=== PATIENT | female | born 1985 | race Caucasian/White ===

== ENCOUNTER → 2017-01-02 | Outpatient (CLI) | payer OTHER ==
[2017-01-02 10:32] LABS: ABSOLUTE EOSINOPHILS # (AUTO) 0.1 10^3/uL (0.0-0.6); ABSOLUTE LYMPHOCYTES (AUTO) 1.2 10^3/uL (0.5-4.7); ABSOLUTE MONOCYTES (AUTO) 0.2 10^3/uL (0.1-1.4); ABSOLUTE NEUT (AUTO) 4.3 10^3/uL (1.7-8.2); BASOPHILS % (AUTO) 0.1 % (0-2); HEMATOCRIT 42.3 % (36.0-47.0); HEMOGLOBIN 14.3 g/dL (12.0-15.5); HGB HCT DIFFERENCE 0.6; LYMPHOCYTES % (AUTO) 20.9 % (13-45); MEAN CORPUSCULAR HEMOGLOBIN 31.9 pg (27.0-33.4); MEAN CORPUSCULAR HGB CONC 33.8 g/dL (32.0-36.0); MEAN CORPUSCULAR VOLUME 94 fl (80-97); MONOCYTES % (AUTO) 3.6 % (3-13); RED BLOOD COUNT 4.49 10^6/uL (3.72-5.28); RED CELL DISTRIBUTION WIDTH 13.3 % (11.5-14.0); SEGMENTED NEUTROPHILS % (AUTO) 74.4 % (42-78); WHITE BLOOD COUNT 5.7 10^3/uL (4.0-10.5)
[2017-01-02 11:42] LABS: ADD HIVPANEL? NO; HIV (1 AND 2) ANTIBODY NEGATIVE (NEGATIVE)
[2017-01-03 06:39] LABS: HEPATITIS C VIRUS AB <0.1 s/co ratio (0.0-0.9)
[2017-01-03 16:39] LABS: HGB A 97.6 % (94.0-98.0); HGB A2 2.4 % (0.7-3.1); HGB SOLUBILITY RESULT Negative (Negative)
== END ==
LOC: OD 09:36
PROVIDERS: ATTEND Advanced Practice Midwife
DX: Z13.29 Encounter for screening for other suspected endocrine disorder (principal); Z13.0 Encounter for screening for diseases of the blood and blood-forming organs and certain disorders involving the immune mechanism; Z11.3 Encounter for screening for infections with a predominantly sexual mode of transmission
CPT/HCPCS: 36415; 83020; 84163; 84443; 84702; 85025; 86336; 86592; 86701; 86762; 86803; 86804; 86850; 86900; 86901; 87340

== ENCOUNTER → 2017-01-30 | Outpatient (CLI) | payer OTHER | LOC: OD 09:14 | PROVIDERS: ATTEND Obstetrics & Gynecology | DX: Z36 Encounter for antenatal screening of mother (principal) | CPT/HCPCS: 36415; 82105 ==

== ENCOUNTER 2017-07-09 09:52 | Outpatient (CLI) | payer OTHER ==
[2017-07-09 10:35] LABS: APPEARANCE,URINE CLEAR; BILIRUBIN,URINE NEGATIVE (NEGATIVE); COLOR,URINE STRAW; GLUCOSE, URINE NEGATIVE (NEGATIVE); KETONES,URINE NEGATIVE (NEGATIVE); LEUKOCYTE ESTERASE,URINE TRACE (NEGATIVE); NITRITE,URINE NEGATIVE (NEGATIVE); PROTEIN,URINE NEGATIVE (NEGATIVE); URINE SPECIFIC GRAVITY 1.003; UROBILINOGEN,URINE NEGATIVE mg/dL (<2.0)
--- NOTE | 2017-07-09 10:38 | Non Stress Test Report ---
Non Stress Test Datetime Report Generated by CPN: 07/09/2017 10:38 DEMOGRAPHIC Test Number: 1 EGA NST: 38.6 INDICATION Indication for Study: Ordered by Provider Indication for Study (NST) Other: PIH work up MONITORING Monitor Explained: Monitor Explained; Test Explained; Patient Verbalized Understanding Time on Monitor: 07/09/2017 10:13 Time off Monitor: 07/09/2017 10:37 NST Duration: 24 NST INTERVENTIONS NST Interventions: None Physician Notified NST: J. Stein, CNM BABY A: [id number] BABY A Movement : Present Contraction Frequency : irreg FHR Baseline : 135 Accelerations : 15X15 Decelerations : None Variability : Moderate 6-25bpm NST Review: Meets Criteria for Reactive NST NST Review and Verified By : Micheal Bellavancmarvin RNC NST Results: Reactive NST REPORT Report Trigger: Send Report
[2017-07-09 10:49] LABS: URINE AMPHETAMINES SCREEN NEGATIVE; URINE BARBITURATES SCREEN NEGATIVE; URINE BENZODIAZEPINES SCREEN NEGATIVE; URINE COCAINE SCREEN NEGATIVE; URINE MARIJUANA (THC) SCREEN NEGATIVE; URINE PHENCYCLIDINE SCREEN NEGATIVE
[2017-07-09 10:51] LABS: UR PRO/CREAT RATIO RESULT 0.5 mg/mg (0.0-0.2); URINE CREATININE 29.1 mg/dL (16-327); URINE PROTEIN 13.8 mg/dL (<12)
[2017-07-09 11:04] LABS: ABSOLUTE EOSINOPHILS # (AUTO) 0.1 10^3/uL (0.0-0.6); ABSOLUTE LYMPHOCYTES (AUTO) 1.9 10^3/uL (0.5-4.7); ABSOLUTE MONOCYTES (AUTO) 0.4 10^3/uL (0.1-1.4); ABSOLUTE NEUT (AUTO) 5.8 10^3/uL (1.7-8.2); BASOPHILS % (AUTO) 0.4 % (0-2); EOSINOPHILS % (AUTO) 0.7 % (0-6); HEMATOCRIT 35.8 % (36.0-47.0); HEMOGLOBIN 11.7 g/dL (12.0-15.5); MEAN CORPUSCULAR HEMOGLOBIN 28.8 pg (27.0-33.4); MEAN CORPUSCULAR HGB CONC 32.6 g/dL (32.0-36.0); MEAN CORPUSCULAR VOLUME 88 fl (80-97); MONOCYTES % (AUTO) 4.7 % (3-13); PLATELET COUNT 187 10^3/uL (150-450); RED BLOOD COUNT 4.06 10^6/uL (3.72-5.28); RED CELL DISTRIBUTION WIDTH 14.9 % (11.5-14.0); SEGMENTED NEUTROPHILS % (AUTO) 71.2 % (42-78); TOTAL CELLS COUNTED % (AUTO) 100 %; WHITE BLOOD COUNT 8.1 10^3/uL (4.0-10.5)
[2017-07-09 11:05] LABS: ALANINE AMINOTRANSFERASE 24 U/L (9-52); ALBUMIN 3.1 g/dL (3.5-5.0); ALKALINE PHOSPHATASE 216 U/L (38-126); ANION GAP 12 (5-19); ASPARTATE AMINO TRANSFERASE 24 U/L (14-36); BILIRUBIN,DIRECT 0.2 mg/dL (0.0-0.4); BILIRUBIN,TOTAL 0.3 mg/dL (0.2-1.3); BLOOD UREA NITROGEN 14 mg/dL (7-20); CARBON DIOXIDE 19 mmol/L (22-30); CHLORIDE 107 mmol/L (98-107); GLUCOSE 74 mg/dL (75-110); LDH 453 U/L (313-618); POTASSIUM 4.3 mmol/L (3.6-5.0); SODIUM 137.8 mmol/L (137-145); TOTAL PROTEIN 6.2 g/dL (6.3-8.2); URIC ACID 7.6 mg/dL (2.5-6.2)
[2017-07-09 11:19] LABS: URINE METHADONE SCREEN NEGATIVE
== END 2017-07-09 11:28 | disposition home or self-care (01) ==
LOC: LC 09:52
PROVIDERS: ATTEND Obstetrics & Gynecology Gynecology
PROC: 4A1HXCZ Monitoring of Products of Conception, Cardiac Rate, External Approach (ICD-10-PCS; principal; 2017-07-09)
DX: O13.3 Gestational [pregnancy-induced] hypertension without significant proteinuria, third trimester (principal); Z3A.38 38 weeks gestation of pregnancy
CPT/HCPCS: 36415; 59025; 80053; 80307; 81001; 82570; 83615; 84156; 84550; 85025

== ENCOUNTER 2017-07-11 08:48 | Inpatient (IN) | payer OTHER ==
[2017-07-11] MEDS ORDERED: RINGERS SOLUTION,LACTATED 1,000 ML IV PRN (10:39)
[2017-07-11] MEDS ORDERED: ACETAMINOPHEN 325 MG TABLET PO PRN (10:39)
[2017-07-11] MEDS ORDERED: OXYTOCIN/NORMAL SALINE 20 UNIT/1,000 ML RTUINJ IV PRN ×2 (10:46→17:41)
[2017-07-11 11:12] LABS: URINE AMPHETAMINES SCREEN NEGATIVE; URINE BARBITURATES SCREEN NEGATIVE; URINE BENZODIAZEPINES SCREEN NEGATIVE; URINE COCAINE SCREEN NEGATIVE; URINE MARIJUANA (THC) SCREEN NEGATIVE; URINE METHADONE SCREEN NEGATIVE; URINE PHENCYCLIDINE SCREEN NEGATIVE
[2017-07-11 11:24] LABS: APPEARANCE,URINE CLEAR; BILIRUBIN,URINE NEGATIVE (NEGATIVE); COLOR,URINE STRAW; GLUCOSE, URINE NEGATIVE (NEGATIVE); KETONES,URINE NEGATIVE (NEGATIVE); LEUKOCYTE ESTERASE,URINE TRACE (NEGATIVE); NITRITE,URINE NEGATIVE (NEGATIVE); PROTEIN,URINE NEGATIVE (NEGATIVE); URINE SPECIFIC GRAVITY 1.004; UROBILINOGEN,URINE NEGATIVE mg/dL (<2.0)
[2017-07-11 11:52] LABS: ABSOLUTE LYMPHOCYTES (AUTO) 1.7 10^3/uL (0.5-4.7); ABSOLUTE MONOCYTES (AUTO) 0.3 10^3/uL (0.1-1.4); ABSOLUTE NEUT (AUTO) 5.5 10^3/uL (1.7-8.2); BASOPHILS % (AUTO) 0.3 % (0-2); EOSINOPHILS % (AUTO) 0.3 % (0-6); HEMATOCRIT 36.9 % (36.0-47.0); HEMOGLOBIN 12.1 g/dL (12.0-15.5); LYMPHOCYTES % (AUTO) 22.6 % (13-45); MEAN CORPUSCULAR HEMOGLOBIN 28.9 pg (27.0-33.4); MEAN CORPUSCULAR HGB CONC 32.7 g/dL (32.0-36.0); MEAN CORPUSCULAR VOLUME 89 fl (80-97); MONOCYTES % (AUTO) 4.2 % (3-13); PLATELET COUNT 174 10^3/uL (150-450); RED BLOOD COUNT 4.16 10^6/uL (3.72-5.28); RED CELL DISTRIBUTION WIDTH 14.7 % (11.5-14.0); SEGMENTED NEUTROPHILS % (AUTO) 72.6 % (42-78); TOTAL CELLS COUNTED % (AUTO) 100 %; WHITE BLOOD COUNT 7.6 10^3/uL (4.0-10.5)
[2017-07-11] MEDS ORDERED: OXYTOCIN/NORMAL SALINE 20 UNIT/1,000 ML RTUINJ ONE ×2 (11:53→12:32)
[2017-07-11 12:19] LABS: ALANINE AMINOTRANSFERASE 40 U/L (9-52); ALBUMIN 3.1 g/dL (3.5-5.0); ALKALINE PHOSPHATASE 211 U/L (38-126); ANION GAP 9 (5-19); ASPARTATE AMINO TRANSFERASE 49 U/L (14-36); BILIRUBIN,DIRECT 0.2 mg/dL (0.0-0.4); BILIRUBIN,TOTAL 0.3 mg/dL (0.2-1.3); BLOOD UREA NITROGEN 13 mg/dL (7-20); CALCIUM 9.3 mg/dL (8.4-10.2); CARBON DIOXIDE 23 mmol/L (22-30); CHLORIDE 106 mmol/L (98-107); GLUCOSE 98 mg/dL (75-110); LDH 520 U/L (313-618); SODIUM 138.2 mmol/L (137-145); TOTAL PROTEIN 5.7 g/dL (6.3-8.2)
[2017-07-11] MEDS ORDERED: MISOPROSTOL 0.2 MG TABLET ONE (12:32)
[2017-07-11] MEDS ORDERED: LIDOCAINE 1% INJ-PF (10 MG/ML) 30 ML SDV ONE (12:33)
--- NOTE | 2017-07-11 13:10 | L&D Progress Notes ---
PROGRESS NOTES Datetime Report Generated by CPN: 07/11/2017 13:09 PROGRESS NOTE Impression: Normal Progression of Labor Procedures: Sterile Vag Exam Plan: Continue Present Management; Anticipate Vaginal Delivery Informed Consent Obtained: Vaginal Delivery; Risks, Benefits and Alternatives Discussed Vital Signs : Reviewed Comment: pt not feeling ctx. Currently on pitocin 4. Cvx 3-4/50/-2. Plan for continued pitocin and IOL for GHTN. No need for Cooks catheter at this time. Pt reports that she desires epidural for pain control but doing well now. Will re-eval in approx 2 hours. VAGINAL EXAM Dilatation: 4 Effacement: 50 Station: -2 FETUS A FHR - Baseline: 130 Monitoring: External US Variability: Moderate 6-25bpm Accelerations: 15X15 Decelerations: None FHR Category: Category I SIGNATURE SIGNATURE: [id number];[id number] SIGNATURE: [id number] Signature: with User ID: [email or web address]
--- NOTE | 2017-07-11 15:28 | L&D Progress Notes ---
PROGRESS NOTES Datetime Report Generated by CPN: 07/11/2017 15:27 PROGRESS NOTE Impression: Normal Progression of Labor Procedures: Artificial ROM; Sterile Vag Exam Plan: Continue Present Management; Induction; Anticipate Vaginal Delivery Informed Consent Obtained: Vaginal Delivery; Risks, Benefits and Alternatives Discussed Vital Signs : Reviewed; Within Normal Limits Comment: cvx exam changed. Pt starting to feel ctx. Continue pitocin. Antcipate . EFW 7-8#. Pelvis adequate for continued BALTAZAR. AROM with clear fluid. Epidural upon patient request. VAGINAL EXAM Dilatation: 5 Effacement: 80 Station: -1 Contractions: q 1-2 MEMBRANES Membranes: Ruptured Amniotic Fluid Color: Clear FETUS A FHR - Baseline: 125 Monitoring: External US Variability: Moderate 6-25bpm Accelerations: 15X15 Decelerations: None FHR Category: Category I FETUS C SIGNATURE: [id number];[id number] Signature: with User ID: [email or web address]
--- NOTE | 2017-07-11 17:30 | Warning Signs in Babies ---
VOD Warning Signs Datetime Report Generated by [facility]: 07/11/2017 17:29 VOD#608 -Warning Signs in Babies: Needs to be viewed. (07/09/2017 10:08:Fly Coon RN)
[2017-07-11] MEDS ORDERED: BENZOCAINE/MENTHOL AEROSOL SPRAY 56 ML TOP PRN (17:41)
[2017-07-11] MEDS ORDERED: MAGNESIUM HYDROXIDE SUSP 30 ML UDCUP PO PRN (17:41)
[2017-07-11] MEDS ORDERED: NA PHOS,M-B/NA PHOS,DI-BA (ADULT) 133 ML ENEMA PR PRN (17:41)
[2017-07-11] MEDS ORDERED: ZOLPIDEM TARTRATE 5 MG TABLET PO PRN (17:41)
[2017-07-11] MEDS ORDERED: DIPH/PERTUSS(ACELL)/TETANUS VAC/PF 0.5 ML SYR (>=10YO) IM PRN (17:41)
[2017-07-11] MEDS ORDERED: ACETAMINOPHEN 650 MG SUPP.RECT PR PRN (17:41)
[2017-07-11] MEDS ORDERED: GLYCERIN/WITCH HAZEL LEAF 1 EACH MED..PAD TP PRN (17:41)
[2017-07-11] MEDS ORDERED: PSEUDOEPHEDRINE HCL 30 MG TABLET PO PRN (17:41)
[2017-07-11] MEDS ORDERED: DIPHENHYDRAMINE HCL 25 MG CAPSULE PO PRN (17:41)
[2017-07-11] MEDS ORDERED: DIBUCAINE 1% OINTMENT 28 GM TP PRN (17:41)
[2017-07-11] MEDS ORDERED: PROMETHAZINE HCL 25 MG SUPP.RECT PR PRN (17:41)
[2017-07-11] MEDS ORDERED: PROMETHAZINE HCL 25 MG TABLET PO PRN (17:41)
[2017-07-11] MEDS ORDERED: PROMETHAZINE HCL INJ 25 MG/1 ML VIAL IV PRN (17:41)
[2017-07-11] MEDS ORDERED: MEASLES,MUMPS&RUBELLA VACC/PF 0.5 ML VIAL SUBCUT PRN (17:41)
[2017-07-11] MEDS ORDERED: ACETAMINOPHEN WITH CODEINE #3 TABLET PO PRN (17:41)
--- NOTE | 2017-07-11 18:45 | Delivery Summary ---
Del Sum A-C Datetime Report Generated by CPN: 07/11/2017 18:45 DELIVERY PERSONNEL DELIVERY PERSONNEL: [id number] Delivery Doctor:: Carolyn Schulz CNM Labor and Delivery Nurse:: Fly Coon RN Nursery Nurse:: Donna White RN Embedded Software Architect/WELL TESTING OPERATOR: Steve Monroe, STRAW BOSS MATERNAL INFORMATION Delivery Anesthesia: Epidural Medications After Delivery: Pitocin Drip 20 Units/1000ml NSS Estimated Blood Loss (ml): 150 Maternal Complications: None Provider Comments: pt. obtained epidural without relief of pain and urge to push was checked and found to be c/c/+2 began pushing and went on to deliver a viable baby boy with vigorous respiratory effort and cry at . Baby placed on maternal abdomen and cord allowed to stop pulsating then clamped x2 and cut. Placenta delivered spontaneously intact (3vc noted, cord blood collected). Vaginal and perineal inspection revealed lacerations as stated and repaired. Mother and baby stable and skin to skin at this time. LABOR SUMMARY EDC: 07/17/2017 00:00 No. Babies in Womb: 1 Attempted: No Labor Anesthesia: Epidural LABOR INFORMATION Reason for Induction: Gestational Hypertension Onset of Labor: 07/11/2017 13:10 Complete Dilatation: 07/11/2017 16:55 Oxytocin: Induction Group B Beta Strep: Negative Antibiotics # of Doses: n/a Antibiotics Time of Last Dose: n/a Name of Antibiotic Given: n/a Steroids Given: None Reason Steroids Not Administered: Not Applicable Other Reason Not Administered: n/a MEMBRANES Membranes Rupture Method: Artificial Rupture of Membranes: 07/10/2017 13:47 Length of Rupture (hr): 27.53 Amniotic Fluid Color: Clear Amniotic Fluid Amount: Small Amniotic Fluid Odor: Normal STAGES OF LABOR Stage 1 hr: 3 Stage 1 min: 45 Stage 2 hr: 0 Stage 2 min: 24 Stage 3 hr: 0 Stage 3 min: 5 Total Time in Labor hr: 4 Total Time in Labor min: 14 VAGINAL DELIVERY Episiotomy: None Laceration #1: Perineal; Vaginal Laceration Extension #1: First Degree Other Laceration: bilateral labial abrasions, MLL Laceration Repair: Yes Laceration Repair Note: pt. with MLL that appears to be old scar tissue repaired with 3-[address]- hemostatic and well approximated. Bilateral labial abrasions in no need of repair. Sharps Count Correct: Yes CSECTION DELIVERY Primary Indication: N/A Secondary Indication: N/A CSection Incidence: N/A Labor: N/A Elective: N/A CSection Incision: N/A BABY A INFORMATION Infant Delivery Date/Time: 07/11/2017 17:19 Method of Delivery: Vaginal Born in Route : No : N/A Forceps: N/A Vacuum Extraction: N/A Shoulder Dystocia : No PRESENTATION/POSITION BABY A Presentation: Cephalic Cephalic Presentation: Vertex Vertex Position: Right Occipital Anterior Breech Presentation: N/A PLACENTA INFORMATION BABY A Placenta Delivery Time : 07/11/2017 17:24 Placenta Method of Delivery: Spontaneous Placenta Status: Delivered SCORES BABY A Heart Rate 1 min: >100 bpm Resp Effort 1 min: Good Cry Reflex Irritability 1 min: Cough or Sneeze or Pulls Away Muscle Tone 1 min: Active Motion Color 1 min: Blue/Pale Resuscitation Effort 1 min: Tactile Stimulation SCORE 1 MIN: 8 Heart Rate 5 min: >100 bpm Resp Effort 5 min: Good Cry Reflex Irritability 5 min: Cough or Sneeze or Pulls Away Muscle Tone 5 min: Active Motion Color 5 min: Body [place], Extremities Blue Resuscitation Effort 5 min: Tactile Stimulation SCORE 5 MIN: 9 INFORMATION BABY A Gestational Age at Delivery: 39.1 Gestational Status: Full Term- 39- 40.6 Weeks Infant Outcome : Liveborn Condition : Stable Sex: Male IDENTIFICATION BABY A Verification Date/Time: 07/11/2017 17:36 ID Band Number: [id number] Mother's Name Verified: Yes Infant RN Verifying : A Martinez RN Additional Verifying Personnel: D Rikki WEIGHT/LENGTH BABY A Birthweight (gm): 4520 Infant Weight (lb): 9 Weight (oz): 15 Infant Length (in): 21.75 Infant Length (cm): 55.25 CORD INFORMATION BABY A No. Cord Vessels: 3 Nuchal Cord : N/A Cord Blood Taken: Yes-For Eval (Mom's Blood Type - or O+) Suction: None ASSESSMENT BABY A Skin to Skin: Yes Skin to Skin Time (min): 60 SIGNATURES Assignment: Emi Curtis MD Signature: with User ID: [email or web address] : with User ID: [email or web address]
--- NOTE | 2017-07-11 19:48 | Admission Physical ---
Datetime Report Generated by CPN: 07/11/2017 19:48 CURRENT ADMISSION Hx Assessment: The History has been Reviewed and is Current Chief Complaint: Signs/Symptoms Gestational HTN; Sent from OB Office for Evaluation and Treatment - Please Specify Indication for Induction: Gestational HTN Indication for Induction: Term, Intrauterine Admit Plan: Initiate Labor Induction Protocol ALLERGIES Medication Allergies: No Medication Allergies: No Known Allergies (07/11/2017) Medication Allergies: No Known Allergies (07/13/2015) Latex: No Latex Allergies OBSTETRICAL HISTORY EDC: 07/17/2017 00:00 : 3 Para: 1 SAB: 1 Livin Gestational Diabetes: No Rh Sensitization: No Incompetent Cervix: No ARIADNE: No Infertility: No ART Treatment: No Uterine Anomaly: No IUGR: No Hx Previous C/S: No Macrosomia: No Hx Loss/Stillborn: No PIH: No Hx : No Placenta Previa/Abruption: No Depression/PP Depression: No PTL/PROM: No Post Hemorrhage: No Obstetrical History Comments: G1 SAB G2 baby girl 40 weeks 2015 G3 current SEE RECORDS Alcohol: No Marijuana : No Cocaine: No Other Illicit Drugs: Yes Cigarettes: Never Smoker. [id number] MEDICAL HISTORY Diabetes: No Blood Transfusion: No Pulmonary Disease (Asthma, TB): No Breast Disease: No Hypertension: Yes Lay Midwife Surgery: No Heart Disease: No Hosp/Surgery: No Autoimmune Disorder: No Anesthetic Complications: No Kidney Disease: No Abnormal Pap Smear: No Neuro/Epilepsy: No Psychiatric Disorders: No Other Medical Diseases: No Hepatitis/Liver Disease: No Significant Family History: No Varicosities/Phlebitis: No Trauma/Violence : No Thyroid Dysfunction: No Medical History Comments: GHTN INFECTIOUS HISTORY Gonorrhea: No Genital Herpes: No Chlamydia: No Tuberculosis: No Syphilis: No Hepatitis: No HIV/AIDS Exposure: No Rash or Viral Illness: No HPV: No PHYSICAL EXAM General: Normal HEENT: Deferred Neurologic: Normal Thyroid: Deferred Heart: Normal Lungs: Normal Breast: Deferred Back: Normal Abdomen: Normal Genitourinary Exam: Normal Extremities: Normal DTRs: Normal Pelvic Type: Adequate Vital Signs: Reviewed Details Vital Signs: mild range VAGINAL EXAM Dilatation: 5 Dilatation: 4 Effacement: 80 Effacement: 50 Station: -1 Station: -2 Contraction Comments: q 1-2 MEMBRANES Membranes: Ruptured Amniotic Fluid Color: Clear FETUS A EGA: 39.1 Monitoring: External US FHR- Baseline: 125 Variability: Moderate 6-25bpm Accelerations: 15X15 FHR Category: Category I Presentation: Vertex Admit Comment: 32yo @ 39w1d into L_D for PIH eval with severe range BPs in office and pending 24h urine which was later found to be 260s. BPs remained elevated while L_D so decision was made to admit and induced for GHTN. Pitocin was started per IOL protocol and then AROM by Dr. Curtis. Pt. desires epidural for pain control at this time. Pt. is GBS neg, rubella immune and O pos blood type. No other significant medical hx, pelvis proven to 6lbs 3oz. Denies RUQ pain/blurry vision/ [place] or other concerns. Reports +FM, denies LOF/bleeding. Plan is to continue IOL with pitocin at this time. PLANS FOR LABOR AND DELIVERY Labor and Delivery: None Pain Management: Epidural Feeding Preference: Breast Benefit of Breast Feed Discussed: Yes Circumcision: N/A INFORMED CONSENT Informed Consent Obtained: Vaginal Delivery; Risks, Benefits and Alternatives Discussed Informed Consent Obtained: Vaginal Delivery; Risks, Benefits and Alternatives Discussed Assignment: Emi Curtis MD Signature: with User ID: [email or web address] : with User ID: [email or web address]
[2017-07-11] MEDS: FAMOTIDINE 20 MG TABLET PO SCH (21:08)
[2017-07-11] MEDS: IBUPROFEN 800 MG TABLET PO SCH (21:08)
[2017-07-12] MEDS: DOCUSATE SODIUM 100 MG CAPSULE PO SCH ×3 (02:08→17:07)
[2017-07-12] MEDS: FERROUS SULFATE 325 MG TABLET PO SCH ×3 (02:08→17:07)
[2017-07-12] MEDS: IBUPROFEN 800 MG TABLET PO SCH ×3 (05:18→21:14)
[2017-07-12] MEDS: ACETAMINOPHEN WITH CODEINE #3 TABLET PO PRN ×2 (06:09→12:01)
[2017-07-12 08:05] LABS: HEMATOCRIT 35.6 % (36.0-47.0); HEMOGLOBIN 11.5 g/dL (12.0-15.5); MEAN CORPUSCULAR HEMOGLOBIN 28.8 pg (27.0-33.4); MEAN CORPUSCULAR HGB CONC 32.5 g/dL (32.0-36.0); MEAN CORPUSCULAR VOLUME 89 fl (80-97); PLATELET COUNT 154 10^3/uL (150-450); RED BLOOD COUNT 4.01 10^6/uL (3.72-5.28); RED CELL DISTRIBUTION WIDTH 14.8 % (11.5-14.0); WHITE BLOOD COUNT 13.3 10^3/uL (4.0-10.5)
[2017-07-12] MEDS: SENNOSIDES/DOCUSATE 8.6-50 MG 1 EACH TABLET PO SCH (09:24)
[2017-07-12] MEDS: PRENATAL VITAMIN W DHA CAPSULE PO SCH (09:24)
[2017-07-12] MEDS: FAMOTIDINE 20 MG TABLET PO SCH ×2 (09:25→21:14)
--- NOTE | 2017-07-12 10:19 | PDOC PROGRESS REPORT ---
Subjective-OB Subjective: Post Delivery Day: 32 year old. Denies any needs at this time Doing well, no c/o, voiding, ambulating, feeling good, scant bleeding Physical Exam (OB) Vital Signs: Temp Pulse Resp BP Pulse Ox 97.5 F 67 16 117/75 99 07/12/17 07:52 07/12/17 07:52 07/12/17 07:52 07/12/17 07:52 07/12/17 07:52 Intake & Output 07/11/17 07/12/17 07/13/17 06:59 06:59 06:59 Intake Total 920 Balance 920 Weight 79 kg - PIH/Pre-Eclampsia Clonus: Negative Headache: Absent Epigastric Pain: No Visual Changes: No - Lochia Lochia Amount: Scant < 10 ml Lochia Color: Rubra/Red - Abdomen Description: Tender, Soft, Round Hernia Present: No Fundal Description: Firm, Midline Fundal Height: u/u - u/2 Objective-Diagnostic Laboratory: 07/12/17 07:33 07/11/17 11:39 07/11/17 07/11/17 07/11/17 09:07 11:39 11:39 WBC 7.6 RBC 4.16 Hgb 12.1 Hct 36.9 MCV 89 MCH 28.9 MCHC 32.7 RDW 14.7 H Plt Count 174 Seg Neutrophils % 72.6 Lymphocytes % 22.6 Monocytes % 4.2 Eosinophils % 0.3 Basophils % 0.3 Absolute Neutrophils 5.5 Absolute Lymphocytes 1.7 Absolute Monocytes 0.3 Absolute Eosinophils 0.0 Absolute Basophils 0.0 Sodium 138.2 Potassium 4.0 Chloride 106 Carbon Dioxide 23 Anion Gap 9 BUN 13 Creatinine 0.90 Est GFR ( Amer) > 60 Est GFR (Non-Af Amer) > 60 Glucose 98 Uric Acid 8.0 H Calcium 9.3 Total Bilirubin 0.3 AST 49 H ALT 40 Alkaline Phosphatase 211 H Total Protein 5.7 L Albumin 3.1 L Urine Color STRAW Urine Appearance CLEAR Urine pH 6.0 Ur Specific [place] 1.004 Urine Protein NEGATIVE Urine Glucose (UA) NEGATIVE Urine Ketones NEGATIVE Urine Blood NEGATIVE Urine Nitrite NEGATIVE Ur Leukocyte Esterase TRACE H Urine WBC (Auto) 2 Urine RBC (Auto) 1 Blood Type Antibody Screen 07/11/17 07/12/17 11:39 07:33 WBC 13.3 H RBC 4.01 Hgb 11.5 L Hct 35.6 L MCV 89 MCH 28.8 MCHC 32.5 RDW 14.8 H Plt Count 154 Seg Neutrophils % Lymphocytes % Monocytes % Eosinophils % Basophils % Absolute Neutrophils Absolute Lymphocytes Absolute Monocytes Absolute Eosinophils Absolute Basophils Sodium Potassium Chloride Carbon Dioxide Anion Gap BUN Creatinine Est GFR ( Amer) Est GFR (Non-Af Amer) Glucose Uric Acid Calcium Total Bilirubin AST ALT Alkaline Phosphatase Total Protein Albumin Urine Color Urine Appearance Urine pH Ur Specific [place] Urine Protein Urine Glucose (UA) Urine Ketones Urine Blood Urine Nitrite Ur Leukocyte Esterase Urine WBC (Auto) Urine RBC (Auto) Blood Type O POSITIVE Antibody Screen NEGATIVE Assessment and Plan(PN) - Assessment and Plan (1) Vaginal delivery Is this a current diagnosis for this admission?: Yes (2) Gestational [-induced] hypertension without significant proteinuria , third trimester Is this a current diagnosis for this admission?: Yes - Time Spent with Patient Time with patient: Less than 15 minutes Medications reviewed and adjusted accordingly: Yes - Disposition Anticipated Discharge: Home Within: within 48 hours
[2017-07-13] MEDS: IBUPROFEN 800 MG TABLET PO SCH ×2 (05:14→14:12)
[2017-07-13] MEDS: DOCUSATE SODIUM 100 MG CAPSULE PO SCH (09:42)
[2017-07-13] MEDS: SENNOSIDES/DOCUSATE 8.6-50 MG 1 EACH TABLET PO SCH (09:43)
[2017-07-13] MEDS: PRENATAL VITAMIN W DHA CAPSULE PO SCH (09:43)
[2017-07-13] MEDS: FAMOTIDINE 20 MG TABLET PO SCH (09:44)
[2017-07-13] MEDS: FERROUS SULFATE 325 MG TABLET PO SCH (09:44)
--- NOTE | 2017-07-13 10:11 | PDOC PROGRESS REPORT ---
Subjective-OB Subjective: Post Delivery Day: 32 year old. Denies any needs at this time Doing well, ready to go home, will check BP at home daily, breast feeding, voiding, ambulating Physical Exam (OB) Vital Signs: Temp Pulse Resp BP Pulse Ox 98.2 F 65 18 129/80 H 99 07/13/17 07:25 07/13/17 07:25 07/13/17 07:25 07/13/17 07:25 07/13/17 07:25 Intake & Output 07/12/17 07/13/17 07/14/17 06:59 06:59 06:59 Intake Total 2920 940 Balance 2920 940 Weight 79 kg - PIH/Pre-Eclampsia Clonus: Negative Headache: Absent Epigastric Pain: No Visual Changes: No - Lochia Lochia Amount: Scant < 10 ml Lochia Color: Rubra/Red - Abdomen Description: Tender, Soft, Round Hernia Present: No Fundal Description: Firm, Midline Fundal Height: u/u - u/2 Objective-Diagnostic Laboratory: 07/12/17 07:33 07/11/17 11:39 Assessment and Plan(PN) - Assessment and Plan (1) Vaginal delivery Is this a current diagnosis for this admission?: Yes (2) Gestational [-induced] hypertension without significant proteinuria , third trimester Is this a current diagnosis for this admission?: Yes - Time Spent with Patient Time with patient: Less than 15 minutes Medications reviewed and adjusted accordingly: Yes - Disposition Anticipated Discharge: Home Within: Other - home today
[2017-07-13 10:17] VITALS: BP 132/80
--- NOTE | 2017-07-13 10:24 | PDOC DISCHARGE SUMMARY ---
Final Diagnosis Discharge Date: 07/13/17 - Final Diagnosis (1) Vaginal delivery Is this a current diagnosis for this admission?: Yes (2) Gestational [-induced] hypertension without significant proteinuria , third trimester Is this a current diagnosis for this admission?: Yes Discharge Data - Discharge Medication Home Medications: Pnv with Ca,No.71/Iron/FA [ Vitamin Tablet] 1 each PO DAILY 05/11/14 Gestational Age: 39.1 Reason(s) for Admission: Induction of Labor, PIH Procedures: NST, Ultrasound Intrapartum Procedure(s): Spontaneous Vaginal Delivery Complication(s): Laceration-Vaginal, Laceration-Perineal, Laceration- Labial Laceration-Degree: 1st - Data Baby 1 Male at 1 minute: 8 at 5 minutes: 9 Weight: 4.508 kg Home with Mother: Yes Complications: No - Diagnosis Test Laboratory: Temp Pulse Resp BP Pulse Ox 98.2 F 65 18 132/80 H 99 07/13/17 10:12 07/13/17 10:12 07/13/17 10:12 07/13/17 10:12 07/13/17 10:12 07/11/17 07/11/17 07/12/17 09:07 11:39 07:33 RBC 4.16 4.01 Hgb 12.1 11.5 L Hct 36.9 35.6 L Urine Opiates Screen NEGATIVE - Discharge information/Instructions Discharge Activity: No Lifting Over 10 Pounds, No Lifting/Push/Pulling, Pelvic Rest Discharge Diet: As Tolerated, Regular Disposition: HOME, SELF-CARE Follow up with: [facility] in: 2, Weeks - take BP at home, rev S&S to report
== END 2017-07-13 15:29 | disposition home or self-care (01) | DRG 775 ==
LOC: LC 08:48 → LR 10:38 → 2S 19:45
PROVIDERS: ADMIT Student in an Organized Health Care Education/Training Program; ATTEND Student in an Organized Health Care Education/Training Program
PROC: 10E0XZZ Delivery of Products of Conception, External Approach (ICD-10-PCS; principal; 2017-07-11)
PROC: 0HQ9XZZ Repair Perineum Skin, External Approach (ICD-10-PCS; 2017-07-11)
PROC: 4A1HXCZ Monitoring of Products of Conception, Cardiac Rate, External Approach (ICD-10-PCS; 2017-07-11)
PROC: 3E033VJ Introduction of Other Hormone into Peripheral Vein, Percutaneous Approach (ICD-10-PCS; 2017-07-11)
DX: O13.4 Gestational [pregnancy-induced] hypertension without significant proteinuria, complicating childbirth (principal); O70.0 First degree perineal laceration during delivery; Z3A.39 39 weeks gestation of pregnancy; Z37.0 Single live birth
CPT/HCPCS: 36415; 80053; 80307; 81001; 83615; 84550; 85025; 85027; 86592; 86850; 86900; 86901; C1726; J2590; J3490